=== PATIENT | male | born 1985 | race Caucasian/White ===

== ENCOUNTER 2016-06-16 21:38 | Emergency (ER) | payer OTHER ==
[2016-06-16 22:00] VITALS: BP 140/74
--- NOTE | 2016-06-16 22:07 | ED.ADGEN ---
Past History Past Medical History: Hypertension Past Surgical History: No Surgical History Alcohol Use: None Drug Use: None Adult General Chief Complaint Chief Complaint Rash between his legs HPI HPI Patient is a 30 year old male who presents with a rash between his legs. He states his been there several weeks. He is unsure when his last tetanus shot was. He denies any fevers chills nausea or vomiting. His grandma's been using antifungal spray on it and it seems to be getting worse over the last 2 days. Review of Systems Review of Systems Constitutional: Denies fever or chills [] Eyes: Denies change in visual acuity, redness, or eye pain [] HENT: Denies nasal congestion or sore throat [] Respiratory: Denies cough or shortness of breath [] Cardiovascular: No additional information not addressed in HPI [] GI: Denies abdominal pain, nausea, vomiting, bloody stools or diarrhea [] : Denies dysuria or hematuria [] Musculoskeletal: Denies back pain or joint pain [] Integument: Positive for rash [] Neurologic: Denies headache, focal weakness or sensory changes [] Endocrine: Denies polyuria or polydipsia [] Current Medications Current Medications Current Medications Medications (Trade) Dose Ordered Sig/Wood Start Time Stop Time Status Last Admin Dose Admin Diphtheria/ Tetanus/Acell Pertussis (Boostrix) 0.5 ml ONCE ONCE 06/16/16 23:45 06/16/16 23:46 DC 06/16/16 23:45 0.5 ML Allergies Allergies Allergies Coded Allergies Type Severity Reaction Last Updated Verified No Known Drug Allergies 06/05/15 No Physical Exam Physical Exam Constitutional: Well developed, well nourished, no acute distress, non-toxic appearance. [] HENT: Normocephalic, atraumatic, bilateral external ears normal, oropharynx moist, no oral exudates, nose normal. [] Eyes: PERRLA, EOMI, conjunctiva normal, no discharge. [] Neck: Normal range of motion, no tenderness, supple, no stridor. [] Cardiovascular:Heart rate regular rhythm, no murmur [] Lungs & Thorax: Bilateral breath sounds clear to auscultation [] Abdomen: Bowel sounds normal, soft, no tenderness, no masses, no pulsatile masses. [] Skin: Warm, dry, no erythema, 7 x 10 cm erythematous lesion under the scrotum on the right thigh consistent with fungal infection Back: No tenderness, no CVA tenderness. [] Extremities: No tenderness, no cyanosis, no clubbing, ROM intact, no edema. [] Neurologic: Alert and oriented X 3, normal motor function, normal sensory function, no focal deficits noted. [] Psychologic: Affect normal, judgement normal, mood normal. [] EKG EKG [] Radiology/Procedures Radiology/Procedures [] Course & Med Decision Making Course & Med Decision Making Pertinent Labs and Imaging studies reviewed. (See chart for details) He has a fungal/she's infection of his groin. Will discharge with clindamycin for 7 days, nystatin powder, [place] for 15 tablets, patient is instructed to follow-up with primary care physician, return ER for worsening pain, fevers, swelling, or other concerns. Final Impression Final Impression Fungal infection of the perineum Problems: Dragon Disclaimer Dragon Disclaimer This electronic medical record was generated, in whole or in part, using a voice recognition dictation system. KYLIE OCONNOR MD June 16, 2016 22:07
[2016-06-16] MEDS ORDERED: NYST15CR TP (23:44)
[2016-06-16] MEDS ORDERED: HYDR-971 PO (23:44)
[2016-06-16] MEDS ORDERED: CLIN300C8 PO (23:44)
[2016-06-16] MEDS ORDERED: DIPHTH,PERTUSS(ACELL),TET TOX 0.5 ML DISP.SYRIN. VAX IM ONE (23:45)
== END 2016-06-17 00:01 | disposition home or self-care (01) ==
LOC: ER 21:44
DX: B37.49 Other urogenital candidiasis (principal); I10 Essential (primary) hypertension
CPT/HCPCS: 90471; 90715; 99283-25

== ENCOUNTER 2017-01-04 17:18 | Emergency (ER) | payer OTHER ==
[~2017-01-04 17:18] MED LIST: CLIN300C8 PO; HYDR-971 PO; NYST15CR TP
[2017-01-04] MEDS ORDERED: diphenhydrAMINE 50 MG/ML VIAL IM ONE (17:45)
[2017-01-04] MEDS ORDERED: methylPREDNISolone ACETATE 40 MG/ML VIAL. IM ONE (17:45)
[2017-01-04] MEDS ORDERED: FAMOTIDINE 20 MG TABLET PO ONE (17:45)
[2017-01-04] MEDS ORDERED: RANI75TA12 PO (18:10)
--- NOTE | 2017-01-04 18:12 | ED.ADGEN ---
Past History Past Medical History: Hypertension Past Surgical History: No Surgical History Alcohol Use: None Drug Use: None Adult General Chief Complaint Chief Complaint " I got this rash.. and it is no better.. I was at [place] and they gave me shot.. but I am no better.. I am worse..." HPI HPI Patient is a 31 year old male who presents with diffuse erythemic rash. Pt. has possible hx of exposure to poison [place]. No history of changes in soaps, detergents, personal hygiene products, or dietary products. Patient normally healthy. Patient up-to-date with vaccinations including tetanus. No recent travel. Rash appears to be a contact dermatitis however is present under his under wear, and not a typical pattern as well as with poison anderson exposure. Review of Systems Review of Systems Constitutional: Denies fever or chills [] Eyes: Denies change in visual acuity, redness, or eye pain [] HENT: Denies nasal congestion or sore throat [] Respiratory: Denies cough or shortness of breath [] Cardiovascular: No additional information not addressed in HPI [] GI: Denies abdominal pain, nausea, vomiting, bloody stools or diarrhea [] : Denies dysuria or hematuria [] Musculoskeletal: Denies back pain or joint pain [] Integument: Complaints of rash or skin lesions [] Neurologic: Denies headache, focal weakness or sensory changes [] Endocrine: Denies polyuria or polydipsia [] All other systems were reviewed and found to be within normal limits, except as documented in this note. Family History Family History Noncontributory Current Medications Current Medications Current Medications Medications (Trade) Dose Ordered Sig/Wood Start Time Stop Time Status Last Admin Dose Admin Diphenhydramine HCl (Benadryl) 50 mg 1X ONCE 01/04/17 17:45 01/04/17 17:46 DC 01/04/17 18:13 50 MG Famotidine (Pepcid) 20 mg 1X ONCE 01/04/17 17:45 01/04/17 17:46 DC 01/04/17 18:14 20 MG Methylprednisolone Acetate (DEPO-Medrol IM) 40 mg 1X ONCE 01/04/17 17:45 01/04/17 17:46 DC 01/04/17 18:13 40 MG He nursing for home medications Allergies Allergies Allergies Coded Allergies Type Severity Reaction Last Updated Verified No Known Drug Allergies 4/26/16 No Physical Exam Physical Exam Constitutional: Well developed, well nourished, no acute distress, non-toxic appearance. [] HENT: Normocephalic, atraumatic, bilateral external ears normal, oropharynx moist, no oral exudates, nose normal. Mild injection of pharynx. Eyes: PERRLA, EOMI, conjunctiva normal, no discharge. [] Neck: Normal range of motion, no tenderness, supple, no stridor. [] Cardiovascular:Heart rate regular rhythm, no murmur [] Lungs & Thorax: Bilateral breath sounds clear to auscultation [] Abdomen: Bowel sounds normal, soft, no tenderness, no masses, no pulsatile masses. [] Skin: Warm, dry, noted erythema and rash. [] Back: No tenderness, no CVA tenderness. [] Extremities: No tenderness, no cyanosis, no clubbing, ROM intact, no edema. [] Neurologic: Alert and oriented X 3, normal motor function, normal sensory function, no focal deficits noted. [] Psychologic: Affect anxious, judgement normal, mood normal. [] Current Patient Data Vital Signs Vital Signs Date Time Temp Pulse Resp B/P (MAP) Pulse Ox O2 Delivery O2 Flow Rate FiO2 01/04/17 18:35 71 18 139/94 (109) 98 Room Air 01/04/17 17:25 99.0 Lab Results Laboratory Tests Test 01/04/17 17:35 Group A Streptococcus Rapid Negative (NEGATIVE) EKG EKG [] Radiology/Procedures Radiology/Procedures [] Course & Med Decision Making Course & Med Decision Making Pertinent Labs and Imaging studies reviewed. (See chart for details). Strep screen was negative. Patient to continue prednisone 50 mg a day 5 days. Takes Zantac 150 mg twice a day. Patient take Benadryl 25-50 mg 4 times a day. Patient to wash all cloths. Attempted to identify any possible contact exposures. Follow-up primary care. Return of any concerns. [] Final Impression Final Impression 1. Rash[]- appears to be a contact dermatitis by pattern and distribution Problems: Dragon Disclaimer Dragon Disclaimer This electronic medical record was generated, in whole or in part, using a voice recognition dictation system. IDA LEY MD Jan 04, 2017 18:12
[2017-01-04] MEDS ORDERED: PRED50TA PO (18:13)
[2017-01-04 18:35] VITALS: BP 139/94
== END 2017-01-04 18:35 | disposition home or self-care (01) ==
LOC: ER 17:18
DX: R21 Rash and other nonspecific skin eruption (principal); I10 Essential (primary) hypertension
CPT/HCPCS: 87070; 87880; 96372; 99284; J1030; J1200

== ENCOUNTER 2020-09-30 15:02 | Emergency (ER) | payer OTHER ==
[~2020-09-30] VITALS: Ht 177.8 cm; Wt 95.4 kg
[~2020-09-30 15:02] MED LIST changes: -CLIN300C8 PO; +CLIN300C9 PO; +HYDR-3165 PO; -HYDR-971 PO; +PRED50TA PO; +RANI75TA89 PO
[2020-09-30 15:22] VITALS: BP 139/94
--- NOTE | 2020-09-30 15:29 | PHYS DOC ---
Past History Past Medical History: Hypertension (FIORDALIZA GRAY APRN) Past Surgical History: No Surgical History (FIORDALIZA GRAY APRN) Alcohol Use: None Drug Use: None (FIORDALIZA GRAY APRN) General Adult EDM: Chief Complaint: INSECT BITE HPI: HPI: 35-year-old male presents with insect bite to left forearm. Patient states he noticed it a couple days ago. Patient does report some itching and redness around the bite. States "I have been able to pop it and get drainage to come from it". Denies taking anything for pain. Denies fever. Denies medical history. (FIORDALIZA GRAY APRN) Review of Systems: Review of Systems: Constitutional: Denies fever or chills Eyes: Denies change in visual acuity HENT: Denies nasal congestion or sore throat Respiratory: Denies cough or shortness of breath Cardiovascular: Denies chest pain or edema GI: Denies abdominal pain, nausea, vomiting, bloody stools or diarrhea : Denies dysuria Musculoskeletal: Denies back pain or joint pain Integument: Red, warm, swelling to left forearm Neurologic: Denies headache, focal weakness or sensory changes Endocrine: Denies polyuria or polydipsia Lymphatic: Denies swollen glands Psychiatric: Denies depression or anxiety (FIORDALIZA GRAY APRN) Allergies: Allergies: Allergies Coded Allergies Type Severity Reaction Last Updated Verified No Known Drug Allergies 06/05/15 No (FIORDALIZA GRAY APRN) Physical Exam: PE: Constitutional: Well developed, well nourished, no acute distress, non-toxic appearance. [] HENT: Normocephalic, atraumatic, bilateral external ears normal, oropharynx moist, no oral exudates, nose normal. [] Eyes: PERRLA, EOMI, conjunctiva normal, no discharge. [] Neck: Normal range of motion, no tenderness, supple, no stridor. [] Cardiovascular:Heart rate regular rhythm, no murmur [] Lungs & Thorax: Bilateral breath sounds clear to auscultation [] Abdomen: Bowel sounds normal, soft, no tenderness, no masses, no pulsatile masses. [] Skin: Left forearm swelling, redness, warm to the touch. No drainage noted. Back: No tenderness, no CVA tenderness. [] Extremities: No tenderness, no cyanosis, no clubbing, ROM intact, no edema. [] Neurologic: Alert and oriented X 3, normal motor function, normal sensory function, no focal deficits noted. [] Psychologic: Affect normal, judgement normal, mood normal. [] (FIORDALIZA GRAY APRN) EKG: EKG: [] (FIORDALIZA GRAY APRN) Radiology/Procedures: Radiology/Procedures: []XAMINATION: XR FOREARM_LEFT 2 VIEWS CLINICAL HISTORY: Left arm pain following injury. SMASHED RING AND PINKY FINGER ON L HAND TECHNIQUE: XR FOREARM_LEFT 2 VIEWS Number of Images/Views: 2 COMPARISON: None FINDINGS: No acute fracture. Joints at the wrist and elbow incompletely evaluated. Soft tissue swelling along the dorsal forearm. IMPRESSION: No acute osseous abnormality left forearm. Electronically signed by: Raul Carrillo DO (09/30/2020 4:25 PM) [id number] (FIORDALIZA GRAY APRN) Heart Score: C/O Chest Pain: No Risk Factors: Risk Factors: DM, Current or recent (<one month) smoker, HTN, HLP, family history of CAD, obesity. Risk Scores: Score 0 - 3: 2.5% MACE over next 6 weeks - Discharge Home Score 4 - 6: 20.3% MACE over next 6 weeks - Admit for Clinical Observation Score 7 - 10: 72.7% MACE over next 6 weeks - Early Invasive Strategies (FIORDALIZA GRAY APRN) Course & Med Decision Making: Course & Med Decision Making Pertinent Labs and Imaging studies reviewed. (See chart for details) [] 35-year-old male with insect bite to left forearm. Patient states he noticed it a couple days ago. Patient states that he has been squeezing the bite and is able to get drainage from the wound. Wound is red, swollen, warm to the touch. Patient given a prescription for Keflex. Instructed patient to take the antibiotic in full. Strict return precautions. Ibuprofen and Tylenol for discomfort. Patient states he understands discharge instructions and is okay with plan. (FIORDALIZA GRAY APRN) Course & Med Decision Making I was the Attending physician on the above date of service of this patient. This patient was evaluated, examined, treated, and dispositioned from the emergency department by the mid-level practitioner. Although I was working at the time , no assistance was requested. Electronically signed, Tunde Cm DO (TUNDE CM DO) Rivka Disclaimer: Rivka Disclaimer: This electronic medical record was generated, in whole or in part, using a voice recognition dictation system. (FIORDALIZA GRAY APRN) Departure Departure: Impression: Primary Impression: Insect bite Qualified Codes: S50.862A - Insect bite (nonvenomous) of left forearm, initial encounter; W57.XXXA - Bitten or stung by nonvenomous insect and other nonvenomous arthropods, initial encounter Disposition: HOME / SELF CARE / HOMELESS Condition: STABLE Referrals: DOMINIK VALENCIA MD (PCP) Patient Instructions: Insect Bite, [id number] Additional Instructions: You are seen in the emergency room for insect bite on left forearm. I am sending you with a prescription for Keflex. You take the antibiotic in full. Ibuprofen or Tylenol at home for discomfort. Follow-up with your PCP return to emergency room with worsening symptoms or concerns EMERGENCY DEPARTMENT GENERAL DISCHARGE INSTRUCTIONS Thank you for coming to [facility] (ED) today and trusting us with you care. We trust that you had a positivie experience in our Emergency Department. If you wish to speak to the department management, you may call the director at [phone]. YOUR FOLLOW UP INSTRUCTIONS ARE FOLLOWS: 1. Do you have a private Doctor? If you do not have a private doctor, please ask for a resource list of physicians or clinics that may be able to assist you with follow up care. 2. The Emergency Physician has interpreted your x-rays. The X-Ray specialist will also review them. If there is a change in the findings, you will be notified in 48 hours when at all possible. 3. A lab test or culture has been done, your results will be reviewed and you will be notified if you need a change in treatment. ADDITIONAL INSTRUCTIONS AND INFORMATION: 1. Your care today has been supervised by a physician who is specially trained in emergency care. Many problems require more than one evaluation for a complete diagnosis and treatment. We recommend that you schedule your follow up appointment as recommended to ensure complete treatment of you illness or injury. If you are unable to obtain follow up care and continue to have a problem, or if your condition worsens, we recommend that you return to the ED. 2. We are not able to safely determine your condition over the phone nor are we able to give sound medical advice over the phone. For these safety reasons, if you call for medical advice we will ask you to come to the ED for further evaluation. 3. If you have any questions regarding these discharge instructions please call the ED at [phone]. SAFETY INFORMATION: In the interest of safety, wellness, and injury prevention; we encourage you to wear your sealbelt, if you smoke; quite smoking, and we encourage family to use a protective helmet for bicycling and other sporting events that present an increased risk for head injury. IF YOUR SYMPTOMS WORSEN OR NEW SYMPTOMS DEVELOP, OR YOU HAVE CONCERNS ABOUT YOUR CONDITION; OR IF YOUR CONDITION WORSENS WHILE YOU ARE WAITING FOR YOUR FOLLOW UP APPOINTMENT; EITHER CONTACT YOUR PRIMARY CARE DOCTOR, THE PHYSICIAN WHOSE NAME AND NUMBER YOU WERE GIVEN, OR RETURN TO THE ED IMMEDIATELY. Scripts Cephalexin (CEPHALEXIN) 500 Mg Tablet 1 TAB PO BID for INFECTION for 7 Days, #14 TAB Prov: FIORDALIZA GRAY APRN 09/30/20 FIORDALIZA GRAY APRN Sep 30, 2020 15:29 TUNDE CM DO Oct 01, 2020 07:59
[2020-09-30] MEDS ORDERED: HYDROcodone/APAP 5/325MG 1 TAB TABLET PO ONE (15:30)
--- NOTE | 2020-09-30 16:27 | RAD ---
EXAMINATION: XR FOREARM_LEFT 2 VIEWS CLINICAL HISTORY: Left arm pain following injury. SMASHED RING AND PINKY FINGER ON L HAND TECHNIQUE: XR FOREARM_LEFT 2 VIEWS Number of Images/Views: 2 COMPARISON: None FINDINGS: No acute fracture. Joints at the wrist and elbow incompletely evaluated. Soft tissue swelling along t he dorsal forearm. IMPRESSION: No acute osseous abnormality left forearm. Electronically signed by: Raul Carrillo DO (09/30/2020 4:25 PM) [id number]
[2020-09-30] MEDS ORDERED: CEPH500T PO (16:52)
== END 2020-09-30 17:01 | disposition home or self-care (01) ==
LOC: ER 15:02
DX: S50.862A Insect bite (nonvenomous) of left forearm, initial encounter (principal); I10 Essential (primary) hypertension; W57.XXXA Bitten or stung by nonvenomous insect and other nonvenomous arthropods, initial encounter; Y93.89 Activity, other specified; Y92.89 Other specified places as the place of occurrence of the external cause; Y99.8 Other external cause status
CPT/HCPCS: 73090; 99283